=== PATIENT | male | born 1945 | race Caucasian/White ===

== ENCOUNTER → 2019-08-05 13:18 | Outpatient (CLI) | payer MEDICARE, OTHER, SELFPAY ==
[2019-07-20 13:40] VITALS: BMI 36.6
[2019-08-05 13:26] LABS: Mucous, Urine 0 SEEN /hpf (<or=2+)
[2019-08-05 14:02] LABS: Absolute Lymphocyte Count 0.67 X10^3/uL (0.83-4.51); Basophil# 0.02 X10^3/uL; Basophil% 0.2 % (0-1); Eosinophil# 0.03 X10^3/uL; Eosinophils% 0.3 % (0-5); Hematocrit 44.4 % (40-54); Hemoglobin 14.8 g/dL (13.0-16.5); Lymphocyte # 0.67 X10^3/ul (4.0); Lymphocyte % 6.2 % (19-41); Mean Corp Hgb Conc 33.3 g/dL (32-36); Mean Corpuscular Hgb 33.3 pg (27.0-32.0); Mean Platelet Vol. 10.3 fl (6.2-12.0); Monocyte# 1.04 X10^3/uL; Monocyte% 9.6 % (0-10); NRBC Flagged by Analyzer 0 % (0-5); Neutrophil # 8.96 X10^3/uL (2.7-7.7); Neutrophil % 82.9 % (47-70); Platelet Count 183 K/mm3 (150-450); RBC Distribution Width SD 48.1 fl (35.1-43.9); Red Blood Count 4.44 M/mm3 (4.6-6.2); White Blood Count 10.8 K/mm3 (4.4-11.0)
[2019-08-05 14:04] LABS: Color, Urine Yellow (Yellow); Glucose, Dipstick Normal (Normal); Ketone-Dipstick 15 mg/dl (Negative); Leukocyte Esterase-Dipstick 500 /ul (Negative); Nitrite-Dipstick Negative (Negative); Occult Blood-Urine 250 /ul (Negative); Protein-Dipstick 30 mg/dl (Negative); Urine Bilirubin Dipstick Negative (Negative); Urine Clarity Cloudy (Clear); Urine Urobilinogen 1 mg/dl (Normal)
[2019-08-05 14:13] LABS: Amorphous Sediment 1+ URATE; Bacteria RARE /hpf (None Seen); Red Blood Cells-Urine 10-25 SEEN /hpf (0-5); Squamous Epithelial Cells - UA 0-5 SEEN /hpf (0-5); White Blood Cells 50-100 SEEN /hpf (0-5)
[2019-08-05 14:28] LABS: ALB/GLOB Ratio 0.8 RATIO (0.9-2.4); AST(SGOT) 37 U/L (15-37); Alanine Aminotransfer ALT/SGPT 28 U/L (16-61); Albumin, Serum 3.1 g/dL (3.2-5.0); Alkaline Phosphatase 87 U/L (45-117); Anion Gap 5 (5-15); BUN 26 mg/dL (7-18); BUN/Creat Ratio 23.6 RATIO (10-20); Calcium,Total 8.9 mg/dL (8.5-10.1); Chloride 103 mmol/L (98-107); EST Glomerular Filtration Rate 69 mL/min (>60); Est Glom Filt Rate - Afr Amer 84 mL/min (>60); Globulin 3.9 g/dL (2.2-4.2); Glucose 82 mg/dL (74-106); Potassium 3.9 mmol/L (3.5-5.1); Sodium Level 134 mmol/L (136-145)
== END ==
PROVIDERS: PCP Family Medicine; Referring Provider Nurse Practitioner Family; Visit Provider Nurse Practitioner Family
DX: Z20.828 Contact with and (suspected) exposure to other viral communicable diseases (principal); R30.0 Dysuria; R50.9 Fever, unspecified; N20.0 Calculus of kidney
CPT/HCPCS: 36415; 80053; 81001; 85025; 87086; 87088; 87635; G2023; U0004

== ENCOUNTER → 2019-09-15 13:38 | Outpatient (CLI) | payer MEDICARE, OTHER, SELFPAY ==
[2019-09-15 13:14] VITALS: BMI 36.6
[2019-09-15 15:18] LABS: Hemoglobin 14.3 g/dL (13.0-16.5); Mean Corp Hgb Conc 32.5 g/dL (32-36); Mean Corpuscular Hgb 33.8 pg (27.0-32.0); Mean Platelet Vol. 9.7 fl (6.2-12.0); Platelet Count 309 K/mm3 (150-450); RBC Distribution Width CV 13.6 % (11.6-14.6); RBC Distribution Width SD 52.2 fl (35.1-43.9); Red Blood Count 4.23 M/mm3 (4.6-6.2); White Blood Count 8.9 K/mm3 (4.4-11.0)
[2019-09-15 15:32] LABS: ALB/GLOB Ratio 0.8 RATIO (0.9-2.4); AST(SGOT) 10 U/L (15-37); Alanine Aminotransfer ALT/SGPT 22 U/L (16-61); Albumin, Serum 3.4 g/dL (3.2-5.0); Alkaline Phosphatase 98 U/L (45-117); Anion Gap 7 (5-15); BUN 13 mg/dL (7-18); BUN/Creat Ratio 10.7 RATIO (10-20); Calcium,Total 9.3 mg/dL (8.5-10.1); Chloride 102 mmol/L (98-107); Creatinine, Serum 1.22 mg/dL (0.70-1.30); EST Glomerular Filtration Rate 62 mL/min (>60); Est Glom Filt Rate - Afr Amer 75 mL/min (>60); Globulin 4.5 g/dL (2.2-4.2); Glucose 89 mg/dL (74-106); PSA,Total- Diagnostic 3.21 ng/mL (0.0-4.0); Potassium 4.8 mmol/L (3.5-5.1); Protein, Total 7.9 g/dL (6.4-8.2); Sodium Level 138 mmol/L (136-145)
== END ==
PROVIDERS: PCP Family Medicine; Referring Provider Family Medicine; Visit Provider Family Medicine
DX: R32 Unspecified urinary incontinence (principal); I10 Essential (primary) hypertension
CPT/HCPCS: 36415; 80053; 84153; 85027

== ENCOUNTER → 2019-09-22 15:33 | Outpatient (CLI) | payer MEDICARE, OTHER, SELFPAY ==
[2019-09-15 13:14] VITALS: BMI 36.6
--- NOTE | 2019-09-22 15:33 | MRI_ITS ---
STUDY: MRI BRAIN WITH AND WITHOUT CONTRAST REASON FOR EXAM: Male, 73 years old. Dizziness, UNSTEADY GAIT FEW MONTHS TECHNIQUE: Standardized multiplanar fat and water weighted pulse sequences were obtained. 23 mL of IV Dotarem was administered for the contrast portion of the examination. COMPARISON: None. FINDINGS: No restricted diffusion to suspect acute or subacute ischemic infarct. No focal signal abnormalities throughout the brain parenchyma. Normal size of the ventricles and extra-axial spaces for the patient''s age. Normal white matter tracts of the supratentorial brain. Normal bilateral basal ganglia. Normal thalami. There is no extra-axial fluid accumulation. Normal flow voids within the major intracranial circulation suggesting patency by spin echo criteria. Normal venous enhancement. There is no enhancing intra-axial or extra-axial abnormality. Normal sella turcica, pituitary gland, infundibular stalk, optic chiasm and hypothalamus. Normal tectal plate and pineal gland. Normal midbrain, mike and medulla. Normal cerebellum. Normal basal cisterns. Normal bilateral temporal bones. Normal bilateral internal auditory canals. No demonstrated orbital abnormality, within the constraints of a routine brain study. Normal visualized paranasal sinuses. Normal calvarium and skull base. Normal visualized soft tissue structures. Normal visualized upper cervical spine. MRI/Brain W/WO Contrast IMPRESSION: Normal unenhanced and enhanced MRI of the brain. Electronically Signed: Momo Esquivel MD at 9:14 EDT , Service support ,
== END ==
PROVIDERS: PCP Family Medicine; Referring Provider Family Medicine; Visit Provider Family Medicine
DX: S09.90XA Unspecified injury of head, initial encounter (principal)
CPT/HCPCS: 70553; A9575

== ENCOUNTER → 2019-12-28 15:05 | Outpatient (CLI) | payer MEDICARE, OTHER, SELFPAY ==
--- NOTE | 2019-12-28 | TISS_PTH ---
PATIENT: TAI CADENA LOC: [facility] U#:[id number] AGE/SX: 79/M ROOM: RE12/28/[address]: Dr. Grant Branham, : 1945 BED: DIS: SPEC #: [id number] RECD: 12/29/19 18:07 STATUS: WALDEMAR CARIDAD #: [id number] MURIEL: 12/28/19 00:[address]: Grant Branham DEPT: SURGICAL PATHOLOGY RECD BY: Sinai Espinosa Tissues: Skin of scalp, NOS Procedures: Surgery Specimen Level IV HEADER OPERATION: Shave biopsy PRE-OP DIAGNOSIS: Suspicious nevus of scalp TISSUE SUBMITTED: Nevus of scalp MICROSCOPIC DIAGNOSIS Skin lesion of scalp, shave biopsy: Malignant melanoma. See synoptic report below. AM:darwin 01/10/20 COMMENT SYNOPTIC REPORT / CANCER CASE SUMMARY Histologic Type: Lentigo Maligna Type Breslow Thickness: 0.55 Mm Ulceration: Absent Precursor Nevus: Absent Tumor Infiltrating Lymphocytes: Absent Perineural Invasion: Absent Vascular Invasion: Absent Satellite Nodules: Absent Peripheral Margin: Positive Deep Margin (Base of Specimen): Positive Immunohistochemistry ([id number]) supports the above diagnosis. This case is seen in consultation with Dr. Don of [employer]. Full report is viewable in [employer]. MICROSCOPIC DESCRIPTION Slides are reviewed. GROSS DESCRIPTION Received in fixative is one container labeled with the patient's name and designated top of head. The specimen consists of a shave biopsy of george-white congested skin measuring 0.7 x 0.5 x 0.1 cm. The specimen is inked and submitted entirely in one cassette. It will be sectioned at the time of embedding. / JOSE:darwin 12/29/19 TC:0 CPT: 77765
--- NOTE | 2019-12-28 | IMM_PTH ---
PATIENT: TAI CADENA LOC: [facility] U#:[id number] AGE/SX: 79/M ROOM: RE12/28/[address]: Dr. Grant Branham DO : 1945 BED: DIS: SPEC #: [id number] RECD: 12/30/19 12:48 STATUS: WALDEMAR REYfn #: [id number] MURIEL: 12/28/19 00:[address]: Grant Branham DEPT: IMMUNOHISTOCHEMISTRY RECD BY: Libra Hernadez Tissues: Skin of scalp, NOS Procedures: Vimentin (add) Pankeratin (add) MELAN-A (initial) S-100 (add) PHYSICIAN & INSTITUTION [place] [address] SPECIMEN INFORMATION: Tissue Source: Nevus of scalp Clinical Info: Suspicious nevus of scalp Specimen Number: [id number] CPT code: 39234, 02567 x3 METHODOLOGY: Deparaffinized sections of prefer/formalin-fixed tissue or PAP/DQ stained slides are incubated with monoclonal/polyclonal antibodies/oligonucleotide probes. Localization is made via biotin free immunoperoxidase method. Appropriate controls are performed and reacted as expected. Results on target cell population are indicated in the following table: RESULTS: ANTIBODY / CLONE RESULT Melan A (A103) positive S-100 (4C4.9) positive Vimentin (V9) positive AE1-3 (AE1/AE3/PCK26) negative These tests were developed and their performance characteristics determined by [facility]. They may not have been cleared or approved by the U.S. Food and Drug Administration. The FDA has determined that such clearance or approval is not necessary. The above immunohistochemical/dualISH markers are ordered and reviewed by the Pathologist. INTERPRETATION: Skin lesion of scalp, shave biopsy: Malignant melanoma. AM:darwin 01/10/20
[2019-12-28 13:55] VITALS: BMI 36.6
== END ==
PROVIDERS: PCP Family Medicine; Visit Provider Family Medicine
DX: D22.9 Melanocytic nevi, unspecified (principal)
CPT/HCPCS: 88305; 88341; 88342

== ENCOUNTER 2020-01-16 07:45 | Day surgery (SDC) | payer MEDICARE, OTHER, SELFPAY ==
[2020-01-12 11:26] VITALS: BMI 36.6
--- NOTE | 2020-01-15 | IMM_PTH ---
PATIENT: TAI CADENA [place] [facility] [id number] AGE/SX: 74/M ROOM: RE01/16/[address]: Dr. Shilo Medina MD : 1945 BED: DIS: 01/16/2020 SPEC #: [id number] RECD: 01/17/20 12:36 STATUS: SOUVazquez REQ #: [id number] MUIREL: 01/15/20 00:[address]: Shilo Medina DEPT: IMMUNOHISTOCHEMISTRY RECD BY: Libra Hernadez ENTERED: 01/17/20 12:38 SP TYPE: IMMUNO OTHR DR: Dr. Grant Brnaham, DO Tissues: Skin of scalp, NOS Procedures: MELAN-A (add) S100 (initial) S-100 (add) PHYSICIAN & INSTITUTION [place] [address] SPECIMEN INFORMATION: Tissue Source: Skin of top of scalp Clinical Info: Melanoma top of scalp Specimen Number: [id number] - [facility] code: 65321, 85972 x19 METHODOLOGY: Deparaffinized sections of prefer/formalin-fixed tissue or PAP/DQ stained slides are incubated with monoclonal/polyclonal antibodies/oligonucleotide probes. Localization is made via biotin free immunoperoxidase method. Appropriate controls are performed and reacted as expected. Results on target cell population are indicated in the following table: RESULTS: ANTIBODY / CLONE RESULT Block 1 S-100 (4C4.9) negative Melan A (A103) negative Block 2 S-100 (4C4.9) positive Melan A (A103) positive Block 3 S-100 (4C4.9) positive Melan A (A103) positive Block 4 S-100 (4C4.9) positive Melan A (A103) positive Block 5 S-100 (4C4.9) positive Melan A (A103) positive Block 6 S-100 (4C4.9) positive Melan A (A103) positive Block 7 S-100 (4C4.9) positive Melan A (A103) positive Block 10 S-100 (4C4.9) positive Melan A (A103) positive Block 11 S-100 (4C4.9) positive Melan A (A103) positive Block 12 S-100 (4C4.9) positive Melan A (A103) positive These tests were developed and their performance characteristics determined by [facility]. They may not have been cleared or approved by the U.S. Food and Drug Administration. The FDA has determined that such clearance or approval is not necessary. The above immunohistochemical/dualISH markers are ordered and reviewed by the Pathologist. INTERPRETATION: Skin of top of scalp, excision: Malignant melanoma. AM:darwin 01/18/20 Case has been reviewed in consultation with Dr. Mason who concurs with the above diagnosis. IDC:SJ
--- NOTE | 2020-01-15 23:54 | HP.PCM_ITS ---
History and Physical Date of Admission: 01/16/20 HISTORY OF PRESENT ILLNESS 74 year old man presents with an enlarging pigmented lesion top of scalp with irregular borders and changes in pigmentation that was recently shave excised on 12/28/19. 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 The deep margin was positive. He denies fever. He denies trauma. He denies drainage. He denies recent infection. He presents today for further evaluation and treatment. PAST MEDICAL HISTORY Neoplasm of skin of scalp (Chronic) Melanoma of scalp (Chronic) Tremor of both hands (Chronic) Insomnia (Chronic) Depression (Chronic) Prostate Issues (Chronic) Pneumonia (Resolved) Osteoarthritis (Chronic) Neuropathy (Chronic) Kidney stones (Chronic) Hypertension (Chronic) Heart disease (Chronic) Hearing problem (Chronic) Frequent headaches (Chronic) Gout (Chronic) Back problem (Chronic) Arthritis (Chronic) Seasonal allergies (Chronic) Anesthesia complication (Acute) Fljgsnm-Dfwbk-Bouem disease (Acute) History of UTI (Acute) PAST SURGICAL HISTORY colonoscopy (Acute) History of knee replacement (Acute) History of rotator cuff surgery (Acute) S/P foot surgery, left (Acute) ALLERGIES ciprofloxacin [From Cipro] Allergy (Unknown, Verified 01/13/20 09:27) Unknown sertraline [From Zoloft] Allergy (Unknown, Verified 01/13/20 09:27) Unknown Contrast Dye Allergy (Unknown, Uncoded 01/13/20 09:27) Unknown MEDICATIONS aspirin 81 mg tablet,delayed release 81 mg PO DAILY 10/14/18 [History Confirmed 01/13/20] multivitamin 1 tab PO DAILY 10/14/18 [History Confirmed 01/13/20] tamsulosin 0.4 mg capsule 0.4 mg PO DAILY #90 cap 11/01/18 [Rx Confirmed 01/13/20] docusate sodium 50 mg capsule 50 mg PO BID 01/12/19 [History Confirmed 01/13/20] gabapentin 300 mg capsule 300 mg PO TID #270 cap 04/20/19 [Rx Confirmed 01/13/20] allopurinol 300 mg tablet 300 mg PO DAILY #90 tab 06/22/19 [Rx Confirmed 01/13/20] escitalopram oxalate 20 mg tablet 20 mg PO DAILY #90 tab 09/14/19 [Rx Confirmed 01/13/20] propranolol 80 mg capsule,24 hr,extended release 80 mg PO DAILY #90 cap 12/01/19 [Rx Confirmed 01/13/20] oxycodone-acetaminophen 7.5 mg-325 mg tablet 1 tab PO Q8H PRN #90 tab 01/03/20 [Rx Confirmed 01/13/20] Clonazepam 1 mg PO QHS 01/13/20 [History Confirmed 01/13/20] FAMILY HISTORY Grandfather Alcoholism Father Diabetes Mother Osteoporosis Brother Skin cancer Other Arthritis CVA (cerebral vascular accident) Depression Heart disease Hypertension Melanoma SOCIAL HISTORY Smoking Status: Former smoker how long ago did patient quit smokin yrs ago alcohol intake: current alcohol intake frequency: a few times a month substance use type: does not use what type of physical activity do you participate in: none additional social history: does take aspirin does take ibuprofen REVIEW OF SYSTEMS General - Denies fever and weight loss. Has fatigue. Eyes - Denies cataracts and glaucoma. ENT - Denies nasal congestion and sore throat. Endocrine - Denies excessive thirst and urination. Has history of hepatitis. Skin - Has enlarging pigmented lesion top of scalp that was shave biopsied 12/28/19 and showed lentigo maligna melanoma with a shave thickness of 0.55 mm and positive deep margin. Has family history of skin cancer. Musculoskeletal - Denies joint pain, joint stiffness, weakness of muscles and joints, back pain. Denies arthritis. Neuro - Has headaches. Has lightheadedness. Cardiovascular - Denies chest pain and shortness of breath with exertion. Has fatigue and lightheadedness. Psych - Denies anxiety. Has depression. Respiratory - Denies chronic cough and shortness of breath. Has history of pneumonia. Patient is a former smoker. Gastrointestinal - Denies nausea, vomiting, diarrhea, and constipation. Hematologic - Denies abnormal bruising and bleeding. Genitourinary - Denies hematuria and urinary frequency. PHYSICAL EXAMINATION General - Alert and Oriented. HEENT - PERRL. EOMI. Throat is clear. On the top of scalp is a pigmented lesion with irregular borders and scattered areas of darker pigmentation. A shave biopsy healing scar is present on the posterior aspect of the pigmented lesion. It measures 5.1 x 4.2 cm. There is a satellite pigmented lesion to the right of the larger pigmented lesion and measures 1.7 x 1.7 cm. It has irregular borders. Between the two pigmented lesions is an intervening skin bridge that measures 1.3 cm. No ulceration. Lesion is nontender. No other suspicious lesions noted. Neck - Supple and nontender. No cervical adenopathy. No suspicious lesions noted. Lungs - Clear to auscultation. Heart - Regular rate and rhythm. Abdomen - Soft and nondistended. Extremities - FROM. No axillary adenopathy. Radial pulses are palpable. No inguinal adenopathy. Dorsalis pedis pulses are palpable. No suspicious lesions noted. Neuro - CN II-XII grossly intact. Psych - Normal mood and affect. ASSESSMENT 1. 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 2. 1.7 cm pigmented lesion right top of scalp. 3. Family history of skin cancer. 4. Former smoker. PLAN Discussed the treatment of melanoma with the patient and his . The main criteria is the thickness of the melanoma. If less than 1 mm, it is a thin melanoma. If greater than 1 mm and less than 4 mm, it is an intermediate thickness melanoma. If greater than 4 mm, it is a thick melanoma. Wide excision is needed for the melanoma down to the underlying muscular fascia with a margin of tissue based on the thickness of the melanoma. A thin melanoma needs a 1 cm margin. An intermediate thickness melanoma needs a 2 cm margin. A thick melanoma needs a 2-3 cm margin. If the melanoma is intermediate thickness, then evaluation of the lymph nodes are necessary with a sentinel lymph node biopsy. If positive, then a complete lymphadenectomy is necessary. Being on the head and area, the drainage to the lymph node basin is variable, sometimes to multiple basins. A nuclear lymphoscintigraphy would be necessary prior to the biopsy to determine the lymph node basin or basins. Since this was an initial shave biopsy, a completion excision will be necessary to make sure there is not additional melanoma present that will push the th ickness into the intermediate category. After the pathology is available, if the combined thickness is less than 1 mm, then can proceed with wide excision of the melanoma with skin grafting. If the combined thickness is greater than 1 mm, then evaluation at a tertiary center will be necessary for the sentinel lymph node biopsy or biopsies and followed by complete lymphadenectomy if positive. Patient understands that at least two procedures are necessary. The initial completion excision can be done on an outpatient basis under local anesthesia and IV sedation. The definitive wide excision of the melanoma with skin grafting can be done on an outpatient basis under general anesthesia. Patient was informed of the risks and complications of the procedure including alternatives to surgery. These were discussed with the patient personally. Patient voices understanding and wishes to proceed. Some of the risks and complications were included in a form from the [place] [employer]. After this melanoma has been treated, he will need a melanoma skin check every 3 months. Once a year he will need a CXR and LFT's which includes LDH and fractionation of Alkaline Phosphatase. Will schedule the initial completion excision early next week. Will also excise the pigmented lesion to the right of the larger melanoma lesion and send it to Pathology for analysis to rule out carcinoma. If melanoma is present in this nearby lesion, then the wide excision will include both melanomas at the time of skin grafting. The wound will be left open initially and wound care started with Silver dressing changes daily. We discussed the current risks associated with COVID-19. While it is understood that there is a community spread of COVID-19, the risk of yong COVID-19 while at [place] ([facility]) is very low; however, the risk cannot be completely mitigated because of the community spread of the disease. We discussed in detail the risk of exposure to and/or potential harm posed by the COVID-19 virus with having a surgery/procedure at this time versus the risk of delaying the surgery/procedure. It is not possible to know either the risk of delaying the surgery or procedure or chance of getting an infection with perfect accuracy, but a joint decision was made to proceed at this time with the scheduled surgery/procedure as indicated on the consent form. Patient was notified that we will need to comply with any screening or testing [facility] wishes to perform or that surgery may be delayed for any positive results. Discussed with the patient that I was tested for COVID-19 on 10/06/19 which was negative and on 10/20/19 which was negative and on 11/03/19 which was negative and on 11/17/19 which was negative and on 12/01/19 which was negative and on 12/22/19 w [facility] was negative and on 01/12/20 which was negative. My testing regimen at this time is to be COVID-19 tested every 2 weeks or so. Procedure Criteria Procedure Type: Elective COVID Risk Discussion: The surgeon/proceduralist and patient have discussed in detail the risk of exposure to and/or potential harm posed by the COVID-19 virus with having a surgery/procedure at this time versus the risk of delaying the surgery/procedure. It is not possible to know either the risk of delaying the surgery or procedure or chance of getting an infection with perfect accuracy, but a joint decision was made between the patient and the surgeon/proceduralist to proceed at this time with the scheduled surgery/procedure as indicated on the consent form.
[2020-01-16] VITALS (8 sets, daily range): BP systolic 86–121; BP diastolic 61–85; PULSE 63–78; RESP 16; TEMP 35.8–36.5; O2SAT 93–97; BMI 36.8
[2020-01-16] MEDS: Lactated Ringers 1,000 ML 75 ML IV (08:33)
--- NOTE | 2020-01-16 09:20 | TISS_PTH ---
PATIENT: TAI CADENA [place] [facility] [id number] AGE/SX: 74/M ROOM: RE01/16/[address]: Dr. Shilo Medina MD : 1945 BED: DIS: 01/16/2020 SPEC #: [id number] RECD: 01/16/20 10:57 STATUS: WALDEMAR REYfn #: [id number] MURIEL: 01/16/20 09:[address]: Shilo Medina DEPT: SURGICAL PATHOLOGY RECD BY: Sinai Espinosa ENTERED: 01/16/20 11:23 SP TYPE: Tissue Bx RAMY DR: Dr. 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 See synoptic report below. AM:darwin 02/02/20 COMMENT SYNOPTIC REPORT Procedure - re-excision Specimen laterality - not specified Tumor site - scalp Macrosatellite nodule - not identified Histologic type - nodular melanoma Melanoma in situ - melanoma in situ, superficial spreading type Maximum tumor thickness - 0.8 millimeters Ulceration - not identified Microsatellites - cannot be determined Margins: Peripheral margin - negative for invasive melanoma, Distance of invasive melanoma from closest peripheral margin - 4.7 mm (6-9 o'clock) Negative for melanoma in situ. Deep margin - negative for invasive melanoma. Distance of melanoma in situ from deep margin - 4.8 millimeters Mitotic rate - none identified Anatomic (Quinn) level - IV (melanoma invades reticular dermis) Lymphvascular invasion - not identified Neurotrophism - not identified Tumor infiltrating lymphocytes at present - not identified Tumor regression - not identified Regional lymph nodes - no lymph nodes submitted or found. Additional pathologic findings - multifocal melanocytic dysplasia, excised. Ancillary studies - [id number] (immunohistochemistry) PATHOLOGIC STAGING: PT2a pNx pMx The above summary is in compliance with [employer] [place] [employer] (CAP) Cancer Protocols Checklist and [place] [employer] Joint Committee on Cancer (AJCC), Staging Manual, 8th Ed. Sections show invasive melanoma associated with scar. Melanoma in situ is also identified. This case is seen in consultation with Dr. Don of [email or web address]. The complete consultative report is viewable in EMR. Immunohistochemistry ([id number]) supports the above diagnosis. Reference is made to the patient's skin lesion of scalp, shave biopsy from 01/10/20 ([id number]) in which lentigo maligna melanoma was identified. Case has been reviewed in consultation with Dr. Mason who concurs with the above diagnosis. Case is discussed with Dr. Medina on 02/06/[address] Simons at 12:58 pm. Case has been reviewed in consultation with Dr. Mason who concurs with the above diagnosis. IDC:SJ MICROSCOPIC DESCRIPTION Slides are reviewed. GROSS DESCRIPTION Received in fixative is one container labeled with the patient's name and designated melanoma top of scalp, suture at 12 o'clock. The specimen consists of an ovoid to slightly irregular piece of george-white to george-brown skin measuring 7.4 x 4.5 cm and up to 0.5 cm in thickness. The specimen is oriented by a suture at 12 o'clock. No distinct lesion is identified. The specimen is inked as follows: 12 to 3 o'clock - black, 3 to 6 o'clock - blue, 6 to 9 o'clock - green, 9 to 12 o'clock - yellow and deep margin - black. The specimen is serially sectioned and submitted entirely in 12 cassettes. Cassette 1 contains the area close to 9 o'clock margin and cassette 12 contains the area close to 3 o'clock margin. / JOSE:darwin 01/16/20 TC:0 CPT: 53583
--- NOTE | 2020-01-16 10:45 | OP.PCM_ITS ---
Report of Operation Date of Procedure: 01/16/20 Pre-Operative Diagnosis: 1. 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 2. 1.7 cm pigmented lesion right top of scalp. 3. Family history of skin cancer. 4. Former smoker. Post-Operative Diagnosis: Same. 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 Description of Surgical Findings:: 74 year old man presents with an enlarging pigmented lesion top of scalp with irregular borders and changes in pigmentation that was recently shave excised on 12/28/19. 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 The deep margin was positive. He denies fever. He denies trauma. He denies drainage. He denies recent infection. Patient was informed of the risks and complications of the procedure including alternatives to surgery. These were discussed with the patient personally. Patient voices understanding and wishes to proceed. Some of the risks and complications were included in a form from the [place] [employer]. Size of defect top of scalp - 8 x 5 cm. casino enforcement agent: None Type of Anesthesia:: Local MAC - xylocaine with epinephrine and IV sedation. Specimen's removed: Lentigo maligna melanoma top of scalp including pigmented lesion extension right top of scalp to Pathology. Drains: None. Estimated Blood Loss (mL): 25 ml. Description of Procedure: Patient was taken to OR in supine position and was given IV sedation. The scalp was prepped and draped in the usual fashion. SCD's were placed for DVT prophylaxis. Perioperative antibiotics were given intravenously. For the procedure, I wore an N95 mask and wore proper eyewear protection. The lentigo maligna melanoma lesion and adjacent pigmented lesion to the right were infiltrated with xylocaine and epinephrine. After waiting 5 minutes for the anesthetic to take effect, I proceeded with a completion excision into the subcutaneous tissue which also included the adjacent pigmented lesion to the right with a couple mm margin in all directions. A suture was marked at the 12 oclock position for pathology orientation. The lesion was sent to Pathology for analysis to evaluate for additional melanoma thickness to further establish a diagnosis. The wound was irrigated with saline. Hemostasis was obtained with electrocautery. The size of the defect top of scalp after completion excision lentigo maligna melanoma was 8 x 5 cm. The wound was dressed with Aquacel Silver and secured to the skin edges with 4-0 Nylon tie over stent suture dressings. Patient tolerated the procedure well and was sent to PACU in satisfactory condition. Patient will be sent home on antibiotics and pain medication. He will keep his head elevated during the initial postoperative period. Patient will followup in a couple of days on Thursday for takedown of the operative dressing and to instruct the patient and family on the Silver dressing changes daily. Will then followup on a weekly basis until the pathology report is av ailable. Once it is available, will discuss further surgical treatment options. Grafts/Implants Used: Aquacel Silver. - Complications None. - Admit VTE Documentation VTE Present on Admission: No VTE Mechan Device Prophylaxis: SCD's VTE Pharm Prophylaxis ordered?: No Surgery Charges CPT - 16741 ICD-10 - C43.4, D49.2, Z80.8, Z87.891
--- NOTE | 2020-01-16 10:59 | DCINST_ITS ---
You will use the following diet at home:: No restrictions, Other - encourage nutritional supplementation with protein to help the healing process. Discharge Activity: May Shower - from the neck down., - - keep head elevated. no heavy lifting. May shower in (days): 1 - from the neck down and wash face in the sink. May resume sexual activity in: No Restrictions Weight Bearing Status: Weight bearing as tolerated Lifting Restrictions: 20 lbs. Keep extremity elevated above heart level: - - elevate head. Call your doctor if your incision/area has: Continuous Slow Oozing, Sudden Increased Bleeding, Increased Pain/ Swelling, Increased Redness, Foul Smelling Discharge, Swelling at the incision site Call your doctor if you observe: Fever of 101 or Higher, Coldness, Increased Pain, Shortness of breath, Chest pain, Calf discomfort, Uncontrolled pain Suture Line Care: - - will change operative dressing in the office. Remove Dressing in (days):: 2 - will remove operative dressing in office. Cleanse incision/area with: - - may shower from the neck down. wash face gently in the sink. Keep operative dressing dry. Additional Instructions: Patient has Percocet at home and will continue them. Allergies/Adverse Reactions: Allergies ciprofloxacin [From Cipro] Allergy (Unknown, Verified 01/16/20 08:09) Unknown sertraline [From Zoloft] Allergy (Unknown, Verified 01/16/20 08:09) Unknown Contrast Dye Allergy (Unknown, Uncoded 01/16/20 08:09) Unknown Medications to take at Discharge multivitamin 1 tab PO DAILY 10/14/18 tamsulosin 0.4 mg capsule 0.4 mg PO DAILY #90 cap 11/01/18 docusate sodium 50 mg capsule 50 mg PO BID 01/12/19 gabapentin 300 mg capsule 300 mg PO TID #270 cap 04/20/19 allopurinol 300 mg tablet 300 mg PO DAILY #90 tab 06/22/19 escitalopram oxalate 20 mg tablet 20 mg PO DAILY #90 tab 09/14/19 propranolol 80 mg capsule,24 hr,extended release 80 mg PO DAILY #90 cap 12/01/19 oxycodone-acetaminophen 7.5 mg-325 mg tablet 1 tab PO Q8H PRN #90 tab 01/03/20 Clonazepam 1 mg PO QHS 01/13/20 Clindamycin HCl [Cleocin] 300 mg PO TID #30 cap 01/16/20 Lactobacillus Acidophilus/Fos [Acidophilus Probiotic Tablet] 1 ea PO BID #30 tab 01/16/20 The following prescriptions were given: Lactobacillus Acidophilus/Fos [Acidophilus Probiotic Tablet] 1 ea PO BID #30 tab Transmission Status: Pending to [id number] Clindamycin HCl [Cleocin] 300 mg PO TID #30 cap Transmission Status: Pending to [facility]- [address] Primary Care Physician: Grant Branham DO [Primary Care Provider] - Test Results: Test results from this visit will be discussed in further detail at your follow- up appointment, if applicable. Please Follow Up With: Shilo Medina MD When: thursday01/18/20. call [phone] for appt. Proposed Discharge Date: 01/16/20
[2020-01-16] MEDS: Acetaminophen 325 MG Tablet PO (11:53)
[2020-01-16] MEDS: oxyCODONE 5 MG Tablet PO (11:54)
== END 2020-01-16 12:40 | disposition home or self-care (01) ==
LOC: SDC 07:46 → AC 07:47
PROVIDERS: PCP Family Medicine; Referring Provider Surgery; Visit Provider Surgery
PROC: (CPT 11626; principal; 2020-01-16 09:10)
DX: C43.4 Malignant melanoma of scalp and neck (principal); I10 Essential (primary) hypertension; M19.90 Unspecified osteoarthritis, unspecified site; M10.9 Gout, unspecified; F32.9 Major depressive disorder, single episode, unspecified; I51.9 Heart disease, unspecified; Z79.899 Other long term (current) drug therapy; Z79.82 Long term (current) use of aspirin; Z87.891 Personal history of nicotine dependence; Z80.8 Family history of malignant neoplasm of other organs or systems; F41.9 Anxiety disorder, unspecified
CPT/HCPCS: 00300; 11626; 88305; 88341; 88342; J7120; J2405

== ENCOUNTER → 2020-03-09 14:48 | Outpatient (CLI) | payer MEDICARE, OTHER, SELFPAY ==
--- NOTE | 2020-03-09 15:12 | RAD_ITS ---
STUDY: X-RAY CHEST REASON FOR EXAM: Male, 74 years old. COUGH HX OF MELANOMA OF SCALP TECHNIQUE: PA and lateral views of the chest. COMPARISON: None. FINDINGS: Mild increased bilateral perihilar markings suggestive of the scarring. There is no demonstrated pleural abnormality. Normal size heart. Normal mediastinum and jm. Normal visualized pulmonary arteries. Normal visualized aortic arch and descending thoracic aorta. There are diffuse degenerative changes of the visualized thoracic spine. Evidence of prior right shoulder surgery. Large hiatal hernia. RAD/Chest PA and Lateral IMPRESSION: Findings suggest some bilateral perihilar scarring. Large hiatal hernia. Prior surgery of the right shoulder. Electronically Signed: Jens Crao, at 15:30 EST , Service support ,
[2020-03-09 17:40] LABS: Absolute Neutrophil Count 3.6 X10^3/uL (2.0-7.7); Basophil# 0.05 X10^3/uL; Basophil% 0.9 % (0-1); Eosinophil# 0.19 X10^3/uL; Eosinophils% 3.2 % (0-5); Hematocrit 48.2 % (40-54); Hemoglobin 15.6 g/dL (13.0-16.5); Lymphocyte % 23.8 % (19-41); Mean Corp Hgb Conc 32.4 g/dL (32-36); Mean Corpuscular Hgb 32.7 pg (27.0-32.0); Mean Platelet Vol. 10.8 fl (6.2-12.0); Monocyte% 10.2 % (0-10); NRBC Flagged by Analyzer 0 % (0-5); Neutrophil # 3.63 X10^3/uL (2.7-7.7); Neutrophil % 61.7 % (47-70); Platelet Count 229 K/mm3 (150-450); RBC Distribution Width CV 13.2 % (11.6-14.6); RBC Distribution Width SD 49.8 fl (35.1-43.9); Red Blood Count 4.77 M/mm3 (4.6-6.2); White Blood Count 5.9 K/mm3 (4.4-11.0)
[2020-03-09 18:19] LABS: ALB/GLOB Ratio 1.1 RATIO (0.9-2.4); AST(SGOT) 14 U/L (15-37); Alanine Aminotransfer ALT/SGPT 24 U/L (16-61); Albumin, Serum 3.9 g/dL (3.2-5.0); Alkaline Phosphatase 76 U/L (45-117); Anion Gap 6 (5-15); BUN 11 mg/dL (7-18); BUN/Creat Ratio 10.3 RATIO (10-20); Bilirubin, Direct 0.18 mg/dL (0.00-0.30); Calcium,Total 9.1 mg/dL (8.5-10.1); Chloride 106 mmol/L (98-107); Creatinine, Serum 1.07 mg/dL (0.70-1.30); EST Glomerular Filtration Rate 72 mL/min (>60); Est Glom Filt Rate - Afr Amer 87 mL/min (>60); Globulin 3.7 g/dL (2.2-4.2); Glucose 89 mg/dL (74-106); LDH 120 U/L (87-241); Potassium 4.1 mmol/L (3.5-5.1); Protein, Total 7.6 g/dL (6.4-8.2); Sodium Level 139 mmol/L (136-145)
== END ==
PROVIDERS: PCP Family Medicine; Referring Provider Orthopaedic Surgery Hand Surgery; Visit Provider Orthopaedic Surgery Hand Surgery
DX: C43.4 Malignant melanoma of scalp and neck (principal)
CPT/HCPCS: 36415; 71046; 80053; 82248; 83615; 85025

== ENCOUNTER → 2021-03-28 16:12 | Outpatient (CLI) | payer MEDICARE, OTHER, SELFPAY ==
[2021-03-28 16:14] LABS: Mucous, Urine 0 SEEN /hpf (<or=2+); Red Blood Cells-Urine 0 SEEN /hpf (0-5)
[2021-03-28 17:05] LABS: Color, Urine Yellow (Yellow); Glucose, Dipstick Normal (Normal); Ketone-Dipstick 5 mg/dl (Negative); Leukocyte Esterase-Dipstick 25 /ul (Negative); Nitrite-Dipstick Negative (Negative); Occult Blood-Urine Negative /ul (Negative); Protein-Dipstick 15 mg/dl (Negative); Specific Gravity, Urine 1.015 (1.002-1.030); Urine Bilirubin Dipstick Negative (Negative); Urine Clarity Sl. Cloudy (Clear); Urine Urobilinogen 1 mg/dl (Normal)
[2021-03-28 17:36] LABS: Bacteria 1+ /hpf (None Seen); Squamous Epithelial Cells - UA 0-5 SEEN /hpf (0-5); White Blood Cells 0-5 SEEN /hpf (0-5)
== END ==
PROVIDERS: PCP Family Medicine; Referring Provider Physician Assistant; Visit Provider Physician Assistant
DX: R31.9 Hematuria, unspecified (principal); R30.0 Dysuria; N39.0 Urinary tract infection, site not specified
CPT/HCPCS: 81001; 87086; 87088

== ENCOUNTER 2021-07-03 13:56 | Outpatient (CLI) | payer MEDICARE, OTHER, SELFPAY ==
[2021-07-03 15:01] LABS: Absolute Lymphocyte Count 1.39 X10^3/uL (0.83-4.51); Absolute Neutrophil Count 3.4 X10^3/uL (2.0-7.7); Basophil# 0.04 X10^3/uL; Basophil% 0.7 % (0-1); Eosinophil# 0.24 X10^3/uL; Eosinophils% 4.3 % (0-5); Hematocrit 46.9 % (40-54); Hemoglobin 16.1 g/dL (13.0-16.5); Lymphocyte # 1.39 X10^3/ul (0.83-4.51); Lymphocyte % 24.9 % (19-41); Mean Corp Hgb Conc 34.3 g/dL (32-36); Mean Corpuscular Hgb 34.8 pg (27.0-32.0); Mean Corpuscular Volume 101.5 fL (80-94); Mean Platelet Vol. 10.9 fl (6.2-12.0); Monocyte# 0.55 X10^3/uL; Monocyte% 9.8 % (0-10); NRBC Flagged by Analyzer 0 % (0-5); Neutrophil # 3.35 X10^3/uL (2.7-7.7); Neutrophil % 59.9 % (47-70); Platelet Count 205 K/mm3 (150-450); Red Blood Count 4.62 M/mm3 (4.6-6.2); White Blood Count 5.6 K/mm3 (4.4-11.0)
[2021-07-03 15:34] LABS: AST(SGOT) 17 U/L (15-37); Alanine Aminotransfer ALT/SGPT 23 U/L (16-61); Albumin, Serum 3.7 g/dL (3.2-5.0); Alkaline Phosphatase 78 U/L (45-117); Anion Gap 6 (5-15); BUN 11 mg/dL (7-18); BUN/Creat Ratio 10.7 RATIO (10-20); Calcium,Total 8.9 mg/dL (8.5-10.1); Chloride 106 mmol/L (98-107); Cholesterol 195 mg/dL (200); Creatinine, Serum 1.03 mg/dL (0.70-1.30); EST Glomerular Filtration Rate 75 mL/min (>60); Est Glom Filt Rate - Afr Amer 90 mL/min (>60); Globulin 3.8 g/dL (2.2-4.2); Glucose 99 mg/dL (74-106); High Density Lipoprotein 37 mg/dL; Potassium 4.2 mmol/L (3.5-5.1); Protein, Total 7.5 g/dL (6.4-8.2); Sodium Level 137 mmol/L (136-145); Thyroid Stim Hormone (TSH) 3.94 uIU/mL (0.358-3.74); Triglycerides 144 mg/dL; Very Low Density Lipoprotein 29 mg/dL (5-40)
== END 2021-07-03 23:59 | disposition home or self-care (01) ==
LOC: BIMLAB 13:57
PROVIDERS: PCP Family Medicine; Referring Provider Nurse Practitioner Family; Visit Provider Nurse Practitioner Family
DX: Z01.818 Encounter for other preprocedural examination (principal); J30.2 Other seasonal allergic rhinitis; I10 Essential (primary) hypertension
CPT/HCPCS: 36415; 80053; 80061; 84443; 85025

== ENCOUNTER → 2023-02-19 | Outpatient (CLI) | payer MEDICARE, MEDICAID, SELFPAY ==
[2023-02-19 17:03] LABS: ALB/GLOB Ratio 1.2 RATIO (0.9-2.4); AST(SGOT) 27 U/L (15-37); Alanine Aminotransfer ALT/SGPT 20 U/L (16-61); Albumin, Serum 3.7 g/dL (3.2-5.0); Alkaline Phosphatase 88 U/L (45-117); Anion Gap 3 (5-15); BUN 15 mg/dL (7-18); BUN/Creat Ratio 15.7 RATIO (10-20); Calcium,Total 9.3 mg/dL (8.5-10.1); Chloride 107 mmol/L (98-107); Creatinine, Serum 0.96 mg/dL (0.70-1.30); EST Glomerular Filtration Rate 81 mL/min (>60); Est Glom Filt Rate - Afr Amer 98 mL/min (>60); Globulin 3.2 g/dL (2.2-4.2); Glucose 98 mg/dL (74-106); Potassium 4.6 mmol/L (3.5-5.1); Protein, Total 6.9 g/dL (6.4-8.2); Sodium Level 142 mmol/L (136-145); Thyroid Stim Hormone (TSH) 2.52 uIU/mL (0.358-3.74)
== END | disposition home or self-care (01) ==
PROVIDERS: PCP Family Medicine; Referring Provider Family Medicine; Visit Provider Family Medicine
DX: F33.1 Major depressive disorder, recurrent, moderate (principal); I10 Essential (primary) hypertension
CPT/HCPCS: 36415; 80053; 84443

== ENCOUNTER → 2023-05-20 | Outpatient (CLI) | payer MEDICARE, MEDICAID, SELFPAY ==
[2023-05-20 17:00] LABS: Absolute Lymphocyte Count 1.67 X10^3/uL (0.83-4.51); Absolute Neutrophil Count 2.9 X10^3/uL (2.0-7.7); Basophil# 0.05 X10^3/uL; Basophil% 0.9 % (0-1); Eosinophils% 3.7 % (0-5); Hematocrit 44.4 % (40-54); Hemoglobin 14.4 g/dL (13.0-16.5); Lymphocyte # 1.67 X10^3/ul (0.83-4.51); Lymphocyte % 30.8 % (19-41); Mean Corp Hgb Conc 32.4 g/dL (32-36); Mean Corpuscular Hgb 33.5 pg (27.0-32.0); Mean Corpuscular Volume 103.3 fL (80-94); Mean Platelet Vol. 11.1 fl (6.2-12.0); Monocyte% 11.1 % (0-10); NRBC Flagged by Analyzer 0 % (0-5); Neutrophil # 2.89 X10^3/uL (2.7-7.7); Neutrophil % 53.3 % (47-70); Platelet Count 202 K/mm3 (150-450); RBC Distribution Width CV 13.5 % (11.6-14.6); RBC Distribution Width SD 51.6 fl (35.1-43.9); White Blood Count 5.4 K/mm3 (4.4-11.0)
[2023-05-20 17:23] LABS: AST(SGOT) 16 U/L (15-37); Alanine Aminotransfer ALT/SGPT 16 U/L (16-61); Albumin, Serum 3.5 g/dL (3.2-5.0); Alkaline Phosphatase 89 U/L (45-117); Anion Gap 1 (5-15); BUN 10 mg/dL (7-18); BUN/Creat Ratio 10.2 RATIO (10-20); Calcium,Total 8.8 mg/dL (8.5-10.1); Chloride 107 mmol/L (98-107); Creatinine, Serum 0.98 mg/dL (0.70-1.30); EST Glomerular Filtration Rate 79 mL/min (>60); Est Glom Filt Rate - Afr Amer 95 mL/min (>60); Globulin 3.4 g/dL (2.2-4.2); Glucose 93 mg/dL (74-106); Potassium 4.5 mmol/L (3.5-5.1); Protein, Total 6.9 g/dL (6.4-8.2); Sodium Level 139 mmol/L (136-145)
== END | disposition home or self-care (01) ==
LOC: BIMLAB 15:25
PROVIDERS: PCP Family Medicine; Visit Provider Nurse Practitioner
DX: J30.2 Other seasonal allergic rhinitis (principal); R42 Dizziness and giddiness
CPT/HCPCS: 36415; 80053; 83735; 85025